=== PATIENT | female | born 1975 | race Two or more races ===

== ENCOUNTER 2021-01-22 15:30 | Emergency (ER) | payer OTHER ==
[~2021-01-22] VITALS: Ht 165.1 cm; Wt 110.2 kg
[2021-01-22 21:30] VITALS: BP 107/76
== END 2021-01-22 22:15 | disposition home or self-care (01) ==
LOC: ER 15:30
DX: S06.0X0A Concussion without loss of consciousness, initial encounter (principal); S60.222A Contusion of left hand, initial encounter; R42 Dizziness and giddiness; R11.0 Nausea; I10 Essential (primary) hypertension; E11.9 Type 2 diabetes mellitus without complications; W18.39XA Other fall on same level, initial encounter; Y93.89 Activity, other specified; Y92.89 Other specified places as the place of occurrence of the external cause; Y99.8 Other external cause status
CPT/HCPCS: 70450; 72125